=== PATIENT | male | born 1995 | race Caucasian/White ===

== ENCOUNTER 2024-02-07 20:20 | Emergency (ER) | payer MEDICAID, OTHER, SELFPAY ==
[2024-02-07 20:43] VITALS: BP 126/76; PULSE 62; RESP 17; TEMP 36.9; O2SAT 98; BMI 19.2
--- NOTE | 2024-02-07 20:49 | DI.RAD.S_ITS ---
PROCEDURE: XR CHEST 1V INDICATIONS: chest pain TECHNIQUE: One view of the chest was acquired. COMPARISON: None. FINDINGS: The heart size and cardiomediastinal silhouette are within normal limits. There is no focal consolidation. IMPRESSION: No acute cardiothoracic process. Dictated by: Chris Burgos M.D. on 02/07/2024 at 21:13 Approved by: Chris Burgos M.D. on 02/07/2024 at 21:17
--- NOTE | 2024-02-07 21:04 | EKG_ITS ---
[place] [id number] [place] [id number] Test Date: 2024-02-07 Pat Name: Noah Grey Department: [facility] Room: Gender: Male [employer]: KINJAL LORA : 1995 Requested By: Order Number: [id number] Reading MD: Juan Carlos Cameron Measurements Intervals [place] Rate: 63 P: 2 KS: 120 QRS: 91 QRSD: 134 T: 46 QT: 392 QTc: 401 Interpretive Statements Normal sinus rhythm Right bundle branch block Electronically Signed On 02-11-2024 15:27:15 PDT by Juan Carlos Cameron
[2024-02-07 21:06] LABS: Add Manual Diff / Slide Review NO; Basophils Absolute Auto 100 /uL (0-100); Basophils Percent Auto 1.2 % (0-2); Eosinophils Absolute Auto 200 /uL (0-450); Eosinophils Percent Auto 2.5 % (2-4); Hematocrit 42.7 % (41-53); Hemoglobin 14.6 g/dL (13.5-17.5); Lymphocytes Absolute Auto 1400 /uL (1100-4500); Mean Corpuscular HGB Conc 34.2 % (30-36); Mean Corpuscular Hemoglobin 30.6 PG (26-34); Mean Corpuscular Volume 89.4 fL (80-100); Monocytes Absolute Auto 500 /uL (0-900); Monocytes Percent Auto 7.4 % (3-14); Neutrophils Absolute Auto 5100 /uL (1500-7000); Neutrophils Percent Auto 69.9 % (50-75); Platelet Count 211 X10^3/uL (150-400); Red Blood Cell Count 4.77 X10^6/uL (4.5-5.9); Red Cell Distribution Width 12.6 % (11.6-14.8); White Blood Cell Count 7.3 X10^3/uL (4.5-11.0)
[2024-02-07 21:15] LABS: Prothrombin Time 11.9 SECONDS (9.4-12.5)
[2024-02-07 21:18] LABS: PTT Partial Thromboplastin Tim 37 SECONDS (25.1-36.5)
[2024-02-07 21:20] LABS: Alanine Aminotransferase 31 IU/L (<50); Albumin 5.1 g/dL (3.5-5.0); Alkaline Phosphatase 68 U/L (38-126); Bilirubin Total 0.6 mg/dL (0.2-1.3); Blood Urea Nitrogen 10 mg/dL (9-20); Calcium 9.9 mg/dL (8.4-10.2); Carbon Dioxide 28 mmol/L (22-32); Chloride 102 mmol/L (98-107); Creatine Kinase 93 U/L (55-170); Estimated Glomerular Filt Rate > 60 mL/min (>60); Glucose 118 mg/dL (70-100); HEMOLYSIS < 15 (0-50); Lipase 37 U/L (23-300); Potassium 3.6 mmol/L (3.4-5.1); Sodium 140 mmol/L (137-145)
[2024-02-07 21:21] LABS: Albumin Globulin Ratio 1.6 (1.0-2.8); Aspartate Aminotransferase 39 IU/L (17-59); Globulin 3.1 g/dL (1.7-4.1); Total Protein 8.2 g/dL (6.3-8.2)
[2024-02-07 21:32] LABS: NT-proBNP (BNP-Adult 18+) < 20 pg/mL (<125); Troponin I < 0.012 ng/mL (0.01-0.034)
--- NOTE | 2024-02-07 23:39 | ED_ITS ---
HPI - Arrhythmia/Palpitations General Chief Complaint: Arrhythmia/Palpitations Stated Complaint: cardiac arrythmia Time Seen by Provider: 02/07/24 23:38 Source: patient Mode of arrival: Ambulatory Related Data Allergies Allergy/AdvReac Type Severity Reaction Status Date / Time No Known Drug Allergies Allergy Verified 02/07/24 20:43 Patient History alcohol intake frequency: a few times a week Alcohol type: wine Substance Use Type: marijuana Exam Initial Vital Signs Initial Vital Signs: Vital Signs Temperature 98.4 F 02/07/24 20:43 Pulse Rate 62 02/07/24 20:43 Respiratory Rate 17 02/07/24 20:43 Blood Pressure 126/76 02/07/24 20:43 Pulse Oximetry 98 02/07/24 20:43 Oxygen Delivery Method Room Air 02/07/24 20:43 Course Orders Ordered: ED Orders 02/07/24 20:49 XR chest 1V Stat EKG-12 Lead Stat 02/07/24 20:55 Complete Blood Count AUTO DIFF Stat Comprehensive Metabolic Panel Stat Lipase Stat Magnesium Stat NT-proBNP (BNP-Adult 18+) Stat PTT Partial Thromboplastin [place] Stat Prothrombin Time INR Stat Troponin & CK Cardiac Panel Stat Discontinued Medications Aspirin (Aspirin 81 Mg Chew Tab) 324 mg PO NOW ONE Stop: 02/07/24 20:49 Vital Signs Vital signs: Vital Signs - 8 hr 02/07/24 20:43 Temperature 98.4 F Pulse Rate 62 Respiratory Rate 17 Blood Pressure 126/76 Pulse Oximetry 98 Oxygen Delivery Method Room Air MDM - Arrhythmia/Palpitations Lab Data 02/07/24 20:55 02/07/24 20:55 Labs: Lab Results 02/07/24 Range/Units 20:55 WBC 7.3 (4.5-11.0) X10^3/uL RBC 4.77 (4.5-5.9) X10^6/uL Hgb 14.6 (13.5-17.5) g/dL Hct 42.7 (41-53) % MCV 89.4 (80-100) fL MCH 30.6 (26-34) PG MCHC 34.2 (30-36) % RDW 12.6 (11.6-14.8) % Plt Count 211 (150-400) X10^3/uL Neut % (Auto) 69.9 (50-75) % Lymph % (Auto) 19.0 L (25-40) % Clare % (Auto) 7.4 (3-14) % Eos % (Auto) 2.5 (2-4) % Baso % (Auto) 1.2 (0-2) % Neut # (Auto) 5100 (8465-1352) /uL Lymph # (Auto) 1400 (2692-2969) /uL Clare # (Auto) 500 (0-900) /uL Eos # (Auto) 200 (0-450) /uL Baso # (Auto) 100 (0-100) /uL PT 11.9 (9.4-12.5) SECONDS INR 1.0 (0.9-1.3) APTT 37 H (25.1-36.5) SECONDS Sodium 140 (137-145) mmol/L Potassium 3.6 (3.4-5.1) mmol/L Chloride 102 (98-107) mmol/L Carbon Dioxide 28 (22-32) mmol/L BUN 10 (9-20) mg/dL Creatinine 0.83 (0.66-1.25) mg/dL Estimated GFR > 60 (>60) mL/min BUN/Creatinine Ratio 12.0 (6-22) Glucose 118 H (70-100) mg/dL Calcium 9.9 (8.4-10.2) mg/dL Magnesium 2.0 (1.6-2.3) mg/dL Total Bilirubin 0.6 (0.2-1.3) mg/dL AST 39 (17-59) IU/L ALT 31 (<50) IU/L Alkaline Phosphatase 68 (38-126) U/L Total Creatine Kinase 93 (55-170) U/L Troponin I < 0.012 (0.01-0.034) ng/mL NT-Pro-B Natriuret Pep < 20 (<125) pg/mL Total Protein 8.2 (6.3-8.2) g/dL Albumin 5.1 H (3.5-5.0) g/dL Globulin 3.1 (1.7-4.1) g/dL Albumin/Globulin Ratio 1.6 (1.0-2.8) Lipase 37 (23-300) U/L Imaging Data Chest x-ray: Radiologist's Impresson: Close Chest X-Ray (Signed) Chris Burgos - 02/07/24 Launch?[address] [address] XRay Report Signed Patient: Noah Grey MR#: [id number] : 1995 Acct:[id number] Age/Sex: 28 / M Date of Service: 02/07/24 Loc: ED Accession Number: [id number] Procedure: XR chest 1V Ordering Provider: Alejandra Euceda D.O. PROCEDURE: XR CHEST 1V INDICATIONS: chest pain TECHNIQUE: One view of the chest was acquired. COMPARISON: None. FINDINGS: The heart size and cardiomediastinal silhouette are within normal limits. There is no focal consolidation. IMPRESSION: No acute cardiothoracic process. Dictated by: Chris Burgos M.D. on 02/07/2024 at 21:13 Approved by: Chris Burgos M.D. on 02/07/2024 at 21:17 ECG Data Attestation: I personally reviewed and interpreted this ECG as follows: Prior ECG tracings: not available for review Interpretation: Sinus rhythm right bundle-branch block rate of 63 [place] 120 QRS of 134 QTC of 401. Discharge Plan Departure Patient Disposition: Left Without Being Seen Clinical Impression: Patient left without being seen
== END 2024-02-07 23:47 | disposition left against medical advice (07) ==
PROVIDERS: Emergency Provider Emergency Medicine
DX: R07.9 Chest pain, unspecified (principal); R00.2 Palpitations; I45.10 Unspecified right bundle-branch block
CPT/HCPCS: 36415; 71045; 80053; 82550; 83690; 83735; 83880; 84484; 85025; 85610; 85730; 93005; 99283